=== PATIENT | female | born 1990 | race Caucasian/White ===

== ENCOUNTER 2024-12-22 08:02 | Emergency (ER) | payer BC, SELFPAY ==
--- NOTE | ~2024-12-22 | CT_ITS ---
CT abdomen pelvis w con Ordering provider: Garth Jay MD History: 34 years Female with . Right abdominal pain . Comparison: None. Technique: CT abdomen and pelvis with IV and without oral contrast. Automated exposure control and it erative reconstruction technique were employed. The dose-length product was 219.82 mGy-cm. 100 mL Omn ipaque 350 was given IV. Findings: VISUALIZED LOWER CHEST: Normal. UPPER ABDOMINAL ORGANS: Liver: Normal. Gallbladder: Normal. Spleen: Normal. Stomach/duodenum: Normal. Pancreas: Normal. Adrenals: Normal. Kidneys: Normal. PELVIC ORGANS: The bladder is underfilled. Uterus: Enlarged with mixed density area in the endometrium which may be fibroids or produc ts. Further evaluation advised. Right ovarian cyst is seen measuring 2.4 cm. BOWEL AND MESENTERY: Colon: No evidence of diverticulitis.. No evidence of appendicitis. Small Bowel: Normal. No obstruction. Peritoneum/mesentery: No free air. Minimal free fluid is seen in the pelvis posteriorly. No mesenteri c lymphadenopathy. RETROPERITONEUM: Normal aorta. No No retroperitoneal lymphadenopathy. MUSCULOSKELETAL: Superficial soft tissues: The superficial soft tissues are normal. Bones: Normal spine. IMPRESSION: 1. No evidence of appendicitis, diverticulitis or intestinal obstruction. 2. Dense areas seen in the endometrial cavity which may be fibroids or masses. products ca nnot be excluded. Clinical correlation and further evaluation advised. 3. Small right ovarian cyst. 4. Minimal free fluid in the pelvis. Reviewed, dictated and finalized at location A. IMPRESSION: 1. No evidence of appendicitis, diverticulitis or intestinal obstruction. 2. Dense areas seen in the endometrial cavity which may be fibroids or masses. products cannot be excluded. Clinical correlation and further evalua tion advised. 3. Small right ovarian cyst. 4. Minimal free fluid in the pelvis.
--- OUTSIDE RECORDS SUMMARY | 2024-12-22 08:09 | XMS_ITS | Referral Summary ---
Author Organization [facility] Address [address] [place] [address] Care Team Providers Care Sand Car Worker Name Role Phone Jennifer Mcconnell CAR TESTER Primary Care Provider + Allergies Active Allergy Reactions Criticality Noted Date Comments Azithromycin Nausea And Vomiting,Other (See comments) Low 02/06/2010 Dexamethasone Other (See comments) Low 06/24/2023 Cause extreme dehydration Medications albuterol HFA (PROVENTIL HFA,VENTOLIN HFA,PROAIR HFA) 90 mcg/actuation inhaler 05/19/2023 Active Symbicort 160-4.5 mcg/actuation inhaler 05/19/2023 Active montelukast (SINGULAIR) 10 mg tablet 05/19/2023 Active sertraline (ZOLOFT) 50 mg tablet Take 1 tablet (50 mg total) by mouth daily 10/09/2023 Active Active Problems Problem Noted Date Diagnosed Date Palpitations 07/29/2023 Asthmatic bronchitis without complication 2022 Seasonal allergic rhinitis 06/28/2023 Vocal cord dysfunction 06/28/2023 Social History Tobacco Use Types Packs/Day Years Used Date Smoking Tobacco: Never Passive Smoke Exposure: Never Smokeless Tobacco: Never Tobacco Cessation:Counseling Given: Not Answered AUDIT-C Answer Date Recorded Q1: How often do you have a drink containing alc ohol? 2-4 times a month 06/24/2023 Q2: How many drinks containi ng alcohol do you have on a typical day when you are drinking? 3 or 4 06/24/2023 Q3: How often do you have si x or more drinks on one occasion? Never 06/24/2023 Personal Safety Answer Date Recorded Getting School Help Needed Not on file 10/20 Comments Unknown Sex and Gender Information Value Date Recorded Sex Assigned at Not on file Legal Sex Female 10:02 AM CDT Gender Identity Not on file Sexual Orientation Not on file Last Filed Vital Signs Vital Sign Reading Time Taken Comments Blood Pressure 110/68 04/27/2024 3:22 PM CDT Pulse 84 04/27/2024 3:22 PM CDT Temperature 36.6 C (97.9 F) 04/27/2024 3:22 PM CDT Respiratory Rate 18 04/27/2024 3:22 PM CDT Oxygen Saturation 98% 04/27/2024 3:22 PM CDT Inhaled Oxygen Concentration - - Weight 54.4 kg (120 lb) 04/27/2024 3:22 PM CDT Height 165.1 cm (5' 5 ) 04/27/2024 3:22 PM CDT Body Mass Index 19.97 04/27/2024 3:22 PM CDT Plan of Treatment Not on file Insurance [employer] ACCESS CHOICE [employer] ACC[employer] CHO[employer] Care Teams Sand Car Worker Relationship Specialty Start Date End Date Jennifer Mcconnell NP PCP - General Nurse Practitioner 05/22/23
--- OUTSIDE RECORDS SUMMARY | 2024-12-22 08:09 | XMS_ITS | Clinical Summary ---
Author Organization [facility] Address [address] [place] [address] Care Team Providers Care Supervisor Personnel Clerks Name Role Phone Jennifer Mcconnell INSTALLATION AND REPAIR TECHNICIAN Primary Care Provider + Allergies Active Allergy [...] allergic rhinitis 06/28/2023 Vocal cord dysfunction 06/28/2023 Family History Medical History Relation Name Comments Cancer Father Heart disease Mother Relation Name Status Comments Father Mother Social History Tobacco Use Types Packs/Day Years [...] on file Sexual Orientation Not on file Obstetrics History Last Filed Vital Signs Vital Sign Reading [...] 04/27/2024 3:22 PM CDT Plan of Treatment Health Maintenance Due Date Last Done Comments Cervical Cancer Screening 1992 Depression Screening 1992 Hepatitis C Screening 1992 Varicella Vaccines (1 of 2 - 13+ 2-dose series) 2005 Hepatitis B Screening 2010 Regular Well Visit/Exam 18-64 2010 Pneumococcal vaccine <65 (1 of 2 - PCV) 12/01/2011 Covid-19 Vaccine ( - season) 2024 01/31/2021, 01/03/2021 DTaP/Tdap/Td Vaccine (2 - Td or Tdap) 02/05/2025 02/05/2015 Influenza Vaccine (Season Ended) 2025 05/20/2023, 07/16/2021, 05/30/2020, Additional history exists HPV Vaccines Aged Out No longer eligi ble based on patient's age to complete this topic Insurance [employer] ACCESS CHOICE [employer] ACCESS CHOICE Care Teams Supervisor Personnel Clerks Relationship Specialty Start Date End Date Jennifer Mcconnell NP PCP - General Nurse Practitioner 05/22/23
--- OUTSIDE RECORDS SUMMARY | 2024-12-22 08:10 | XMS_ITS | Clinical Summary ---
Author Organization [facility] Address [address] [place] [id number] Care Team Providers Care Forklift Driver Name Role Phone Unavailable Primary Care Provider Unavailabl e Social History Tobacco Use Types Packs/Day Years Used Date Smoking Tobacco: Never Assessed Comments Unknown Sex and Gender Information Value Date Recorded Sex Assigned at Not on file Legal Sex Female 7:24 PM CDT Gender Identity Not on file Sexual Orientation Not on file Plan of Treatment Health Maintenance Due Date Last Done Comments Cervical Cancer Screening Pa p Smear (Age 30 to 64) Every 3 Years 1992 Annual Physical 12/01/1995 Hepatitis C 2010 DTaP, Tdap and Td Vaccines ( 1 - Tdap) 12/01/2011 Hepatitis B Vaccines (1 of 3 - 19+ 3-dose series) 12/01/2011 Cervical Cancer Screening Pa p with HPV Testing (Age 30 to 64) Every 5 Years 2022 Cervical Cancer Screening with HPV 2022 COVID-19 Vaccine (2023-2 5 season) 2024 HPV Vaccines Aged Out No longer eligi ble based on patient's age to complete this topic Meningococcal B Vaccine Aged Out No l onger eligible based on patient's age to complete this topic Meningococcal Vaccine Aged Out No jorge a diane eligible based on patient's age to complete this topic Pneumococcal Vaccine: Pediat rics (0 to 5 Years) and At-Risk Patients (6 to 49 Years) Aged Out No longer eligible b ased on patient's age to complete this topic RSV Immunizations Under 20 Months Aged Out No longer eligible based on patient's age to complete this topic
--- OUTSIDE RECORDS SUMMARY | 2024-12-22 08:10 | XMS_ITS | Data Portability ---
Author Organization [place] - [facility] [employer], Main Office Address [address] [place] [address] Care Team Providers Care Car Designer Name Role Phone ATIYA CHAVEZ Advisory Application Developer Assessment Encounter Date Assessment Date Assessment LastModified by Organization Details LastModified Time 12/01/2023 12/01/2023 Flu Shot: 05/2023 COVID vaccines: 12/2020, 12/2020, 01/2021 Tdap: 01/2015 WWE: 2021, recommended in 2024 Vision exams: recommended Dental screenings: due, recommended [email or web address] Not available 12/01/2023 09:40:41 Plan of Treatment Reminders Order Date Submit Date Provider Last Modified By Organization Details Last Modified Time Details Appointments None recorded. Lab lipid panel, serum [address] - Outpatient Lab, [address] [place], [address], 3 08:52:35 TSH, serum, reflex free T4 [address] Outpatient Lab, [address] [place], [address], 3 08:52:35 CMP, serum or plasma [address] Outpatient Lab, [address] [place], [address], 3 08:52:35 HbA1c (hemoglobin A1c), blood [address] Outpatient Lab, [address] [place], [address], 3 08:52:35 CBC w/ auto diff [address] - Outpatient Lab, [address] [place], [address], 3 08:52:35 Referral clinical therapist referral - Please call patient to schedule appointment . 2023 024 [email or web address] Mary Kay RossSlade [facility], [address], [place], [address], 4 12:55:[address] referral - Asthma and allergies. 2022 023 [email or web address] 3 Kilpatrick F Santiago, [address] [facility], [facility] [address], [place], [address], 3 07:39:30 Procedures None recorded. Surgeries None recorded. Imaging None recorded. Medication Orders montelukast 10 mg tablet 2023 024 [facility], [address] [place], [address], 4 16:36:42 albuterol sulfate HFA 90 mcg/actuati on aerosol inhaler 2023 024 [facility], [address] [place], [address], 4 09:43:11 sertraline 50 mg tablet [address] [facility] [address], [address] [place] [address], [address], 4 16:12:06 sertraline 50 mg tablet [address] [facility] [address], [address], [address], 4 16:11:41 Symbicort 160 mcg-4.5 mcg/actuati on HFA aerosol inhaler [email or web address] [facility] [address], [address], [address], 4 09:03:14 montelukast 10 mg tablet [address] [facility] [address], [address], [address], 3 10:42:05 albuterol sulfate HFA 90 mcg/actuati on aerosol inhaler 2022 023 [facility], [address], [address], 3 10:42:05 Patient TargetsNo targets recorded. Patient Instructions Encounter Date Encounter Id Patient Instructions Last Modified By Organization Details Last Modified Time 01/07/2023 [id number] FU in 1 year for wellness. 6 mo fu asthma, allergies. Not available 01/07/2023 16:51:18 05/20/2023 [id number] Fu in 6 mo, sooner as needed. Asthma, allergies, etc. Not available 05/20/2023 08:26:50 09/03/2023 [id number] FU with new provider in 6 weeks for check up. 09/03/23 pt aware of sam departure. wellness after 01/09/24 Not available 09/03/2023 09:29:19 Reason for Referral Geotechnical Engineer Referral for A sta Asthma and allergies. Referring Physician: [facility], Encounter Date: 05/20/2023 Clinical Therapist Referral for Anxiety Please call patient to schedule appointment. Referring Physician: [facility], Encounter Date: 09/03/2023 Results Created Date Observation Date Name Description Value Unit Range Abnormal Flag Note LastModifiedBy Organization Detail LastModifiedTime 05/20/20 23 05/20/2023 CBC/C OMPLE TE BLD COUNT W/DIF F white blood cells 6.1 x10'3 /uL 4.2-10 .8 Not Available [facility] (Lab) [address] [place], [address], 05/20/2023 13:00:07 05/20/20 23 05/20/2023 CBC/C OMPLE TE BLD COUNT W/DIF F red blood cells 4.11 x10'6 /uL 3.80-5 .20 Not Available [facility] (Lab) [address] [place], [address], 05/20/2023 13:00:07 05/20/20 23 05/20/2023 CBC/C OMPLE TE BLD COUNT W/DIF F hemoglobin 13.3 g/dL 12.0-1 5.6 Not Available [facility] (Lab) [address] [place], [address], 05/20/2023 13:00:07 05/20/20 23 05/20/2023 CBC/C OMPLE TE BLD COUNT W/DIF F hematocrit 39.7 % 35.7-4 5.7 Not Available [facility] (Lab) [address] [place], [address], 05/20/2023 13:00:07 05/20/20 23 05/20/2023 CBC/C OMPLE TE BLD COUNT W/DIF F mean red cell volume 96.6 fL 82.0-9 9.0 Not Available [facility] (Lab) [address] [place], [address], 05/20/2023 13:00:07 05/20/20 23 05/20/2023 CBC/C OMPLE TE BLD COUNT W/DIF F mean red cell hemoglobin 32.4 pg 27.0-3 3.0 Not Available [facility] (Lab) [address] [place], [address], 05/20/2023 13:00:07 05/20/20 23 05/20/2023 CBC/C OMPLE TE BLD COUNT W/DIF F mean RBC HGB concentratio n 33.5 g/dL 31.0-3 6.0 Not Available [facility] (Lab) [address] [place], [address], 05/20/2023 13:00:07 05/20/20 23 05/20/2023 CBC/C OMPLE TE BLD COUNT W/DIF F red cell distribution width 12.3 % 11.8-1 5.5 Not Available [facility] (Lab) [address] [facility] [place], [address], 05/20/2023 13:00:07 05/20/20 23 05/20/2023 CBC/C OMPLE TE BLD COUNT W/DIF F platelets 326 x10'3 /uL 150-40 0 Not Available [facility] (Lab) [address] [place], [address], 05/20/2023 13:00:07 05/20/20 23 05/20/2023 CBC/C OMPLE TE BLD COUNT W/DIF F mean platelet volume 9.8 fL 9.0-12 .4 Not Available [facility] (Lab) [address] [place], [address], 05/20/2023 13:00:07 05/20/20 23 05/20/2023 CBC/C OMPLE TE BLD COUNT W/DIF F neutrophils 66.2 % 39.0-7 2.0 Not Available [facility] (Lab) [address] [place], [address], 05/20/2023 13:00:07 05/20/20 23 05/20/2023 CBC/C OMPLE TE BLD COUNT W/DIF F lymphocytes 25.3 % 16.0-4 7.0 Not Available [facility] (Lab) [address] [facility] [place], [address], 05/20/2023 13:00:07 05/20/20 23 05/20/2023 CBC/C OMPLE TE BLD COUNT W/DIF F monocytes 7.2 % 5.0-12 .0 Not Available [facility] (Lab) [address] [place], [address], 05/20/2023 13:00:07 05/20/20 23 05/20/2023 CBC/C OMPLE TE BLD COUNT W/DIF F eosinophils 0.8 % 1.0-7. 0 low Not Available [facility] (Lab) [address] [place], [address], 05/20/2023 13:00:07 05/20/20 23 05/20/2023 CBC/C OMPLE TE BLD COUNT W/DIF F basophils 0.3 % 0.0-2. 0 Not Available [facility] (Lab) [address] [place], [address], 05/20/2023 13:00:07 05/20/20 23 05/20/2023 CBC/C OMPLE TE BLD COUNT W/DIF F immature granulocytes 0.2 % 0.00-0 .50 Not Available [facility] (Lab) [address] [place], [address], 05/20/2023 13:00:07 05/20/20 23 05/20/2023 CBC/C OMPLE TE BLD COUNT W/DIF F neutrophils, absolute count 4.05 x10'3 /uL 1.5-8. 0 Not Available [facility] (Lab) [address] [place], [address], 05/20/2023 13:00:07 05/20/20 23 05/20/2023 CBC/C OMPLE TE BLD COUNT W/DIF F lymphocytes, absolute count 1.55 x10'3 /uL 1.07-3 .43 Not Available [facility] (Lab) [address] [place], [address], 05/20/2023 13:00:07 05/20/20 23 05/20/2023 CBC/C OMPLE TE BLD COUNT W/DIF F monocytes, absolute count 0.44 x10'3 /uL 0.29-0 .99 Not Available [facility] (Lab) [address] [place], [address], 05/20/2023 13:00:07 05/20/20 23 05/20/2023 CBC/C OMPLE TE BLD COUNT W/DIF F eosinophils, absolute count 0.05 x10'3 /uL 0.02-0 .53 Not Available [facility] (Lab) [address] [place], [address], 05/20/2023 13:00:07 05/20/20 23 05/20/2023 CBC/C OMPLE TE BLD COUNT W/DIF F basophils, absolute count 0.02 x10'3 /uL 0.01-0 .08 Not Available [facility] (Lab) [address] [place], [address], 05/20/2023 13:00:07 05/20/20 23 05/20/2023 CBC/C OMPLE TE BLD COUNT W/DIF F immature granulocytes ,absolute 0.01 x10'3 /uL 0.00-0 .05 Not Available [facility] (Lab) [address] [place], [address], 05/20/2023 13:00:07 05/20/20 23 05/20/2023 CBC/C OMPLE TE BLD COUNT W/DIF F nucleated red blood cells 0.0 % -0 Not Available [facility] (Lab) [address] [place], [address], 05/20/2023 13:00:07 0905/20/2023 CBC/C OMPLE TE BLD COUNT W/DIF F NRBC# 0.00 x10'3 /uL Not Available [facility] (Lab) [address] [place], [address], 05/20/2023 13:00:07 05/20/20 23 05/20/2023 COMPR EHENS JULIET METAB OLIC PANEL sodium 136 mmol/ L 137-14 5 low Not Available [facility] (Lab) [address] [place], [address], 05/20/2023 13:20:04 05/20/20 23 05/20/2023 COMPR EHENS JULIET METAB OLIC PANEL potassium 4.5 mmol/ L 3.5-5. 1 Not Available [facility] (Lab) [address] [place], [address], 05/20/2023 13:20:04 05/20/20 23 05/20/2023 COMPR EHENS JULIET METAB OLIC PANEL chloride 103 mmol/ L 98-107 Not Available [facility] (Lab) [address] [place], [address], 05/20/2023 13:20:04 05/20/20 23 05/20/2023 COMPR EHENS JULIET METAB OLIC PANEL carbon dioxide 27 mmol/ L 22-30 Not Available [facility] (Lab) [address] [place], [address], 05/20/2023 13:20:04 05/20/20 23 05/20/2023 COMPR EHENS JULIET METAB OLIC PANEL anion gap 10.5 mmol/ L 14-22 low Not Available [facility] (Lab) [address] [place], [address], 05/20/2023 13:20:04 05/20/20 23 05/20/2023 COMPR EHENS JULIET METAB OLIC PANEL glucose 95 mg/dL 70-99 Not Available [facility] (Lab) [address] [place], [address], 05/20/2023 13:20:04 05/20/20 23 05/20/2023 COMPR EHENS JULIET METAB OLIC PANEL BUN 11 mg/dL 8-19 Not Available [facility] (Lab) [address] [place], [address], 05/20/2023 13:20:04 05/20/20 23 05/20/2023 COMPR EHENS JULIET METAB OLIC PANEL creatinine 0.58 mg/dL 0.66-1 .25 low Not Available [facility] (Lab) [address] [facility] [place], [address], 05/20/2023 13:20:04 05/20/20 23 05/20/2023 COMPR EHENS JULIET METAB OLIC PANEL GFR >60 Refer ence Range : Hayti ge GFR Healt hy Adult : >60 mL/mi n/1.7 3 m2 Chron ic Kidne y Disea se: 15-60 mL/mi n/1.7 3 m2 Kidne y Failu re: <15/m L/min /1.73 m2 www.n iddk. nih.g ov The MDRD study equat ion has not been valid ated in child norman <18 years of age; pregn ant women ; the elder ly >85 years of age; or in some racia l or ethni c subgr oups, such as [facility] nics. Outsi de the valid ated whit eters , estim ated GFR is less accur ate, requi ring clini nikita judgm ent on a case- by-ca se basis . Clini nikita inter preta tion for other races and ages must be made by the clini finn. The MDRD study equat ion has not been valid ated for the evalu ation of serum creat inine relat ed to nutri antwon l statu s or medic ation usage . For perso ns <18 years of age, a pedia tric GFR calcu lator is avail able on the NKF websi te: https ://marnie avery.laly bravo.o rg/pr ofess ional s/kdo qi/gf r_cal culat or Not Available [facility] (Lab) [address] [place], [address], 05/20/2023 13:20:04 05/20/20 23 05/20/2023 COMPR EHENS JULIET METAB OLIC PANEL alkaline phosphatase 34 U/L 38-126 low Not Available [facility] (Lab) [address] [place], [address], 05/20/2023 13:20:04 05/20/20 23 05/20/2023 COMPR EHENS JULIET METAB OLIC PANEL alanine aminotransfe rase 12 U/L 0-35 Not Available [facility] (Lab) [address] [place], [address], 05/20/2023 13:20:04 05/20/20 23 05/20/2023 COMPR EHENS JULIET METAB OLIC PANEL aspartate aminotransfe rase 15 U/L 15-37 Not Available [facility] (Lab) [address] [place], [address], 05/20/2023 13:20:04 05/20/20 23 05/20/2023 COMPR EHENS JULEIT METAB OLIC PANEL bilirubin, total 0.40 mg/dL 0.20-1 .30 Not Available [facility] (Lab) [address] [place], [address], 05/20/2023 13:20:04 05/20/20 23 05/20/2023 COMPR EHENS JULIET METAB OLIC PANEL calcium 9.3 mg/dL 8.4-10 .2 Not Available [facility] (Lab) [address] [place], [address], 05/20/2023 13:20:04 05/20/20 23 05/20/2023 COMPR EHENS JULIET METAB OLIC PANEL total protein 7.2 g/dL 6.3-8. 2 Not Available [facility] (Lab) [address] [place], [address], 05/20/2023 13:20:04 05/20/20 23 05/20/2023 COMPR EHENS JULIET METAB OLIC PANEL albumin 4.4 g/dL 3.4-5. 0 Not Available [facility] (Lab) [address] [place], [address], 05/20/2023 13:20:04 05/20/20 23 05/20/2023 COMPR EHENS JULIET METAB OLIC PANEL globulin 2.8 g/dL 2.6-4. 2 Not Available [facility] (Lab) [address] [place], [address], 05/20/2023 13:20:04 05/20/20 23 05/20/2023 COMPR EHENS JULIET METAB OLIC PANEL A/G ratio 1.6 ratio 1.0-2. 0 Not Available [facility] (Lab) [address] [place], [address], 05/20/2023 13:20:04 05/20/20 23 05/20/2023 LIPID PANEL cholesterol 155 mg/dL 140-19 9 NIH ODALYS NSUS RECOM MENDA TION FOR ALONSO STERO L: ADULT CHILD LOW RISK: <200 <170 BORDE RLINE : <200- 239 ----- HIGH RISK: >240 >200 Not Available [facility] (Lab) [address] [place], [address], 05/20/2023 13:20:07 05/20/20 23 05/20/2023 LIPID PANEL triglyceride s 69 mg/dL 0-150 NIH ODALYS NSUS REPOR T RECOM MENDA TION FOR TRIGL YCERI DOMINIC: ADULT CHILD LOW RISK: <150 ----- BODER LINE: 150-1 99 ----- HIGH RISK: >200 ----- Not Available [facility] (Lab) [address] [place], [address], 05/20/2023 13:20:07 05/20/20 23 05/20/2023 LIPID PANEL HDL cholesterol 60 mg/dL 40- Not Available [facility] (Lab) [address] [place], [address], 05/20/2023 13:20:07 05/20/20 23 05/20/2023 LIPID PANEL LDL cholesterol, calculated 81 mg/dL 0-130 NIH ODALYS NSUS REPOR T RECOM MENDA TIONS FOR LDL: ADULT CHILD LOW RISK <130 <110 (OPTI MAL LDL) <100 ----- BORDE RLINE : 130-1 59 ----- HIGH RISK: >160 >130 A TRIGL YCERI DE RESUL T >400 INVAL IDATE S THE CALCU LATIO N FOR LDL FRACT IONAT ION - THE LDL RESUL T WILL NOT BE REPOR MALCOLM. Not Available [facility] (Lab) [address] [place], [address], 05/20/2023 13:20:07 05/20/20 23 05/20/2023 TSH W/REF CYNDI FT4 TSH with reflex free T4 1.070 uIU/m L 0.465- 4.680 Not Available [facility] (Lab) [address] [place], [address], 05/20/2023 13:48:22 05/20/20 23 05/20/2023 HEMOG LOBIN A1C HA1C 5.4 % 4.0-6. 0 Diabe elmo Scree massiel Crite gracia: <5.7% Consi stent with absen ce of diabe elmo 5.7-6 .4% Consi stent with incre ased risk for diabe elmo (pred iabet es) >OR=6 .5% Consi stent with diabe elmo REFER ENCE: Diabe elmo Care 2016, 39(Tejeda ppl.1 ):s13 -s22 Not Available [facility] (Lab) [address] [place], [address], 05/20/2023 14:20:18 Result Notes None recorded. Problems Name Problem SNOMED Code Status Onset Date Resolution Date Notes Provider Name and Address Organization Details Recorded Time Asthma 755151401 Active Not Available [facility] 3 08:09:17 Headache 89286361 Active Not Available [facility] 3 08:09:17 Seasonal allergic rhinitis 285677814 Active 2019 Not Available [facility] 3 08:09:17 Allergic reaction to food 197869867 Active Not Available [facility] 3 08:09:17 Upper respiratory infection 70024907 Active 2017 Not Available [facility] 3 08:09:17 Anxiety 19789369 Active 2023 Jennifer Mcconnell NP [address] [facility], [address], [place], [address] , [employer] 4 09:15:04 Allergic rhinitis 22581713 Active 2023 Jennifer Mcconnell NP [address] [facility], [facility] [address], [place], [address] , [employer] 4 09:23:40 Acute otitis externa 94279775 Active 2023 NANCY Bolanos [address] [facility], [place], [address] , [employer] [facility] [employer] 4 16:36:06 Problem Notes None recorded. Medical Equipment None Reported. Allergies Allergen ID Allergen Name Allergen Category Reaction Reaction Severity Criticality Documentation Date Start Date Code Code System Note Provider Name and Address Organization Details Recorded Time 41666 azithromy guille medicatio n respirato ry distress Not available Not available 10/29/2022 78311 RxNorm Not Available [facility] 3 08:12:15 Medications Name Sig Start Date Stop Date Status Note LastModified by Organization Details LastModified Time amoxicillin 500 mg capsule Take 1 capsule every 8 hours by oral route for 7 days. 07/30 completed Not Available Not Available Not Available cetirizine 10 mg tablet 1 tab po daily 05/20 completed Not Available Not Available Not Available benzonatate 200 mg capsule Take 1 capsule 3 times a day by oral route for 10 days. active Not Available Not Available No t Available amoxicillin 500 mg tablet Take 1 tablet every 8 hours by oral route as directed for 7 days. 07/30 completed Not Available Not Available Not Available montelukast 10 mg tablet TAKE 1 TABLET BY MOUTH ONCE DAILY DIRECTED active Not Available Not Available No t Available methylpredn isolone 4 mg tablets in a dose pack take po as directed on label 07/30 completed Not Available Not Available Not Available albuterol sulfate HFA 90 mcg/actuati on aerosol inhaler INHALE 2 PUFFS BY MOUTH EVERY 4 HOURS NEEDED FOR WHEEZING active Not Available Not Available No t Available sertraline 50 mg tablet TAKE 1 TABLET BY MOUTH ONCE DAILY DIRECTED 2024 active Not Available Not Available Not Avai lable Asmanex Twisthaler 220 mcg/actuati on(30 doses) breath activated inhalr INHALE 1 PUFF BY MOUTH AT BEDTIME DISCARD 45 DAYS AFTER OPENING 05/30 completed Not Available Not Available Not Available Symbicort 160 mcg-4.5 mcg/actuati on HFA aerosol inhaler INHALE 2 PUFFS BY MOUTH TWICE DAILY 09/03 completed Not Available Not Available Not Available Afluria 2064-1952(P F) 45 mcg (15 mcg x 3)/0.5 mL intramuscul ar syringe active Not Available Not Available N ot Available Flonase Allergy Relief 50 mcg/actuati on nasal spray,suspe nsion [place] 1 spray every day by intranasa l route. active Not Available Not Available No t Available Vitals Date Recorded Body weight Body mass index (BMI) Body height Body temperature Heart rate Respiratory rate Oxygen saturation Oxygen saturation in Arterial blood by Pulse oximetry Pain severity - 0-10 verbal numeric rating [Score] - Reported Systolic blood pressure Diastolic blood pressure Provider Name and Address Organization Details Last Updated DateTime 3 40790.1 1 g 19.3 kg/m2 165.1 cm 98 [degF] 103 /min 16 /min 98 % 98 % 0 118 mm[Hg] 60 mm[Hg] Jennifer Lynne RN [place] [facility] 3 16:30:32 Date Recorded Body height Body mass index (BMI) Body weight Heart rate Respiratory rate Oxygen saturation Oxygen saturation in Arterial blood by Pulse oximetry Pain severity - 0-10 verbal numeric rating [Score] - Reported Body temperature Systolic blood pressure Diastolic blood pressure Provider Name and Address Organization Details Last Updated DateTime 3 165.1 cm 19.1 kg/m2 38028.1 2 g 83 /min 16 /min 99 % 99 % 0 97.8 [degF] 110 mm[Hg] 64 mm[Hg] Jennifer Lynne RN [facility] 3 08:08:41 Date Recorded Body height Body mass index (BMI) Body weight Body temperature Heart rate Oxygen saturation Oxygen saturation in Arterial blood by Pulse oximetry Systolic blood pressure Diastolic blood pressure Provider Name and Address Organization Details Last Updated DateTime 4 165.1 cm 19 kg/m2 73133.5 3 g 97.2 [degF] 101 /min 99 % 99 % 110 mm[Hg] 62 mm[Hg] Cecily guajardo CMA [facility] 4 09:03:03 Date Recorded Body height Body mass index (BMI) Body weight Body temperature Heart rate Respiratory rate Oxygen saturation Oxygen saturation in Arterial blood by Pulse oximetry Systolic blood pressure Diastolic blood pressure Provider Name and Address Organization Details Last Updated DateTime 4 165.1 cm 19.7 kg/m2 59822.0 5 g 97.2 [degF] 84 /min 20 /min 99 % 99 % 122 mm[Hg] 88 mm[Hg] Jennifer Lynne RN [facility] 4 09:32:19 Date Recorded Body height Body mass index (BMI) Body weight Body temperature Heart rate Respiratory rate Oxygen saturation Oxygen saturation in Arterial blood by Pulse oximetry Pain severity - 0-10 verbal numeric rating [Score] - Reported Systolic blood pressure Diastolic blood pressure Provider Name and Address Organization Details Last Updated DateTime 4 165.1 cm 19.3 kg/m2 95793.1 1 g 96.5 [degF] 104 /min 20 /min 98 % 98 % 0 102 mm[Hg] 62 mm[Hg] Jennifer Lynne RN [facility] 4 16:15:36 Social History Question Answer Notes LastModified by Organizat ion Details LastModified Time Tobacco Smoking Status Never Smoker Not Available [facility] 10/29/2022 08:06:12 Do You Have An Advance Directive? No Information not available 01/07/2023 What Is Your Level Of Alcohol Consumption? Occasional [id number] Information not available 10/29/2022 Do You Wear A Helmet When Biking? Yes [id number].[id number] Information not available 10/29/2022 Is Blood Transfusion Acceptable In An Emergency? Yes Information not available 01/07/2023 What Is Your Level Of Caffeine Consumption? Moderate [id number].27950 [id number] Information not available 10/29/2022 What Is Your Code Status? Full Code Information not available 01/07/2023 In The 14 Days Before Symptom Onset, Have You Had Close Contact With A Laboratory-confir med COVID-19 While That Case Was Ill? No Information not available 01/07/2023 In The 14 Days Before Symptom Onset, Have You Had Close Contact With A Person Who Is Under Investigation For COVID-19 While That Person Was Ill? No Information not available 01/07/2023 What Type Of Diet Are You Following? REGULAR MIGRATION.25437 [id number] Information not available 10/29/2022 What Is The Highest Grade Or Level Of School You Have Completed Or The Highest Degree You Have Received? 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 3 Information not available 01/07/2023 On Those Days That You Engage In Moderate To Strenuous Exercise, How Many Minutes, On Average, Do You Exercise? 30 Information not available 01/07/2023 Have There Been Any Changes To Your Family Or Social Situation? No MIGRATION.75080 47179 Information not available 10/29/2022 What Is The Fluoride Status Of Your Home? Unknown MIGRATION.81384 07397 Information not available 10/29/2022 Do You Use Insect Repellent Routinely? No MIGRATION.08201 02114 Information not available 10/29/2022 Where Do You Live? [place]House MIGRATION.71009 15640 Information not available 10/29/2022 Are You Following A Low Salt Diet? No MIGRATION.91969 83567 Information not available 10/29/2022 Do You Have A Medical Power Of Toll Relief Operator? No Information not available 01/07/2023 How Many Children Do You Have? 0 Information not available 05/20/2023 Do You Have Any Pets? Yes MIGRATION.15793 59149 Information not available 10/29/2022 What Is Your Relationship Status? Single MIGRATION.74613 94022 Information not available 10/29/2022 Do You Use Your Seat Belt Or Car Seat Routinely? Yes MIGRATION.30354 40458 Information not available 10/29/2022 Do You Have Smoke And Carbon Monoxide Detectors In Your Home? Yes MIGRATION.08594 22601 Information not available 10/29/2022 Are You Passively Exposed To Smoke? No MIGRATION.53167 40513 Information not available 10/29/2022 Are There Any Smokers In Your House? No MIGRATION.42061 50132 Information not available 10/29/2022 Do You Participate In Social Media? Yes MIGRATION.49106 07649 Information not available 10/29/2022 Do You Feel Stressed (tense, Restless, Nervous, Or Anxious, Or Unable To Sleep At Night)? CD2656-8 Information not available 01/07/2023 Do You Use Sunscreen Routinely? No MIGRATION.97834 96468 Information not available 10/29/2022 Have You Recently Traveled Abroad? No Information not available 01/07/2023 Are You Currently In School? No MIGRATION.18130 95807 Information not available 10/29/2022 Do You Have Any Dietary Restrictions? Yes MIGRATION.21230 52651 Information not available 10/29/2022 Sex: Unknown Functional Status Question Answer Note LastModified by Organizat ion Details LastModified Time What is your exercise level? Moderate [id number] Information not available 10/29/2022 Mental Status None recorded. Family History Relationship Description Onset Age of this Age Resolved Age Notes LastModified by Organization Details LastModified Time Paternal Aunt Aneurysm [id number] Not available 10/29/2022 08:06:36 Paternal Aunt Malignant tumor of breast [id number] Not available 10/29/2022 08:06:36 Unspecified Relation Heart disease moms side [id number] Not available 10/29/2022 08:06:36 Notes:heart disease on mothe r's side Medical History Condition Response BLINDNESS N RHEUMATIC FEVER N KIDNEY STONES N BLADDER PROBLEMS N MRSA N OTHER # 1 N POLIO N LUNG DISEASE/DISORDER N HISTORY OF DRUG ABUSE N COPD N RADIATION / CHEMOTHERAPY N Other # 2 N BLOOD DISEASES N SURGERY N EAR OR HEARING PROBLEMS N MUMPS N SHINGLES N BOWEL PROBLEMS N FEMALE PROBLEMS / INFECTIONS N DEPRESSION (INCLUDING POST ) N FAILED BACK SYNDROME N STROKE/TIA N THYROID DISEASE N ULCERS N BENIGN PROSTATIC HYPERPLASIA N MEASLES N CERVICALGIA N TB SKIN TEST N HYPOTENSION N MYOCARDIAL INFARCTION N OBESITY N PARAPELGIA N GERD/NAUSEA N ANEURYSM N URINARY/BLADDER/KIDNEY PROBLEMS N CORONARY ARTERY DISEASE (CAD) N Do you have Advance directive? N MENIERE'S DISEASE N ADDICTION CONCERNS N ENDOMETRIOSIS N USE OF BLOOD THINNERS N SKIN PROBLEMS N EMPHYSEMA N GASTROINTESTINAL DISORDER N PERIPHERAL ARTERY DISEASE N MUSCLE,JOINT OR BONE PROBLEMS N GASTROINTESTINAL BLEEDING N BLOOD CLOTS N ASTHMA N Abdominal Pain N CATARACTS N ARTERIAL INSUFFICIENCY N ERECTILE DYSFUNCTION N GI PROBLEMS N CHF N Low Testosterone N NEUROPATHY N INFERTILITY N AIDS/HIV N FRACTURES N CHEMOTHERAPY / RADIATION N VISION/EYE PROBLEMS N LIVER DISEASE N HYPERTENSION N TOURETTE'S N ANXIETY DISORDER N BLOOD TRANSFUSION N ANEMIA/BLOOD DISORDER N CHRONIC EAR INFECTIONS N BRONCHITIS N TUBERCULOSIS N GLAUCOMA N FOOT PROBLEM N DIVERTICULITIS N CHICKENPOX N SLEEP APNEA N BACK INJECTIONS N ALLERGIES/HAYFEVER N INFECTIOUS DISEASE N HEART ARRHYTHMIA N PROSTATE N ESRD N INSOMNIA N HIGH CHOLESTEROL / HYPERLIPIDEMIA N HYPERTHYROIDISM N EYE PROBLEMS N PVD N EATING DISORDER N EDEMA N CHRONIC PAIN SYNDROME N CAROTID BLOCKAGE N CONSTIPATION N BACK / NECK PROBLEMS N HAVE YOU BEEN HOSPITALIZED OR SEEN IN [facility] IN THE PAST YEAR ? N ATHEROSCLEROSIS N BREAST PROBLEMS N DIALYSIS N POLYCYSTIC OVARIES N ECZEMA N FIBROMYALGIA N OSTEOPOROSIS N ARTHRITIS N NO SIGNIFICANT PAST MEDICAL HISTORY N APPENDICITIS N DIABETES, TYPE N BAD TEETH N VON WILLIBRAND'S DISEASE N HEARTBURN / REFLUX N ADD/ADHD N AUTISM SPECTRUM DISORDER (ASD) N POST LAMINECTOMY SYNDROME N HEPATITIS / LIVER DISEASE N PULMONARY DISEASE N GOUT N SLEEP DISORDER N ALZHEIMER'S DISEASE N PAIN N HERPES N DEMENTIA N HEADACHES/MIGRAINES N SEIZURES/EPILEPSY N VASCULAR DISEASE N PACEMAKER N DIZZINESS N HEART DISEASE/HEART PROBLEMS N KIDNEY DISEASE N DEVELOPMENTAL OR BEHAVIORAL DISORDERS N MULTIPLE SCLEROSIS N SCARLET FEVER N MENTAL DISORDER/ILLNESS N NEUROPSYCHOLOGICAL N CARDIAC ARRHYTHMIA N CANCER: SPECIFY N PNEUMONIA N ATRIAL FIBRILLATION N Gall Stones N PULMONARY EMBOLISM N AUTOIMMUNE DISEASE N Gynecological History Statement/Question Response Flow Moderate Date of LMP 01/14/2024 Dislike of Light during Menstrual Headac he N Do your menstrual headaches get severe N Duration of Flow (days) 6 Most Recent Mammogram Age at Menarche 16 Date of Last Colonoscopy Frequency of Cycle (Q days) 28 Most Recent Bone Density Do you get headaches during your period N Menses Monthly Y Date of Last Pap Smear Obstetrics History GPAL:G 0 P 0 0 0 0 Immunizations Vaccine Type Date Status Note Provider Nam lenka and Address Organization Details Recorded Time Influenza, split virus, quadrivalent, PF 3 completed Jennifer Lynne RN [facility], [facility] 05/20/2023 09:12:27 Influenza, split virus, trivalent, preservative 4 completed Not Available [facility] 10/29/2022 08:12:07 Influenza, split virus, quadrivalent, PF 9 completed Not Available [facility] 10/29/2022 08:12:07 Influenza, split virus, quadrivalent, PF 7 completed Not Available [facility] 10/29/2022 08:12:07 Tdap 5 completed Not Available [facility] 10/29/2022 08:12:07 Influenza, split virus, quadrivalent, PF 1 completed Not Available [facility] 10/29/2022 08:12:07 Influenza, split virus, quadrivalent, PF 0 completed Not Available [facility] 10/29/2022 08:12:07 Influenza, split virus, trivalent, PF 3 completed Not Available [facility] 10/29/2022 08:12:07 Past Encounters Encounter ID Performer Location Encounter Start Date Encounter Closed Date Diagnosis/Indication Diagnosis SNOMED-CT Code Diagnosis ICD10 Code Diagnosis Note [id number] [facility] [address] [place] [id number] 1 07/16/2021 00:00:00 07/16/2021 16:28:30 [id number] [facility] [address] [place] [id number] 1 07/30/2021 00:00:00 07/30/2021 16:24:15 [id number] Jennifer Mcconnell NP [address] [id number] 1 01/07/2023 16:15:24 01/07/2023 16:59:59 Adult health examination 659364060 Z00.00 Encouraged well balanced meals, active lifestyle, and routine vision and dental appts. Anemia screening 4970355 07 Z13.0 Diabetes m ellitus screening 244208008 Z13.1 Thyroid di sorder screening 840689304 Z13.29 Hyperlipid emia screening 795511345 Z13.220 Asthma 641833043 J45.90 9 symbicort bid, montelukas t 10 mg po daily. Sent to [facility]. [id number] Jennifer Mcconnell NP [address] [id number] 05/20/2023 07:56:21 05/20/2023 08:37:20 Asthma 660751402 J45.909 Symbicort bid, montelukas t 10 mg po daily. Sent to [facility].Re ferred to pulm per pt request. Seasonal a llergic rhinitis 480966070 J30.2 Cetirizine 10 mg po daily.Flon ase. Administra tion of influenza vaccine 31562151 Z23 Flu shot. [id number] Jennifer Mcconnell NP [address] [id number] 09/03/2023 08:55:29 09/03/2023 09:40:43 Anxiety 17567375 F41.9 Sertraline 25 mg po daily for 2 weeks, then 50 mg po daily. Allergic rhinitis 028067 04 J30.9 Montelukas t 10 mg po daily. [facility] per pt request. [id number] NANCY Bolanos [address] [id number] 12/01/2023 09:23:20 12/01/2023 09:43:42 Anxiety 18997509 F41.9 Continue follow up every 6 months, let us know if moods change Asthma 569296358 J45.90 9 Continue daily antihistam ine as neededCont inue follow up with pulmonolog y [id number] NANCY Bolanos [facility] [address] [id number] 01/20/2024 16:03:02 01/20/2024 16:40:09 Asthma 442747615 J45.909 Continue daily antihistam ine as neededCont inue follow up with pulmonolog y Acute otitis externa 302 35493 H60.509 ABX ear drop offered, pt declined. She would like to wait this out. She will call in if she changed her mind. Health Concerns Section Related Observation LastModified by Organization Detai ls LastModified Time None Recorded Concern Status LastModified by Organization Details LastModified Time None Recorded Advance Directives Directive N: Payers Encounter Date Sequence Insurance Name Policy Number Policy Grayson Covered Member ID Grayson Member ID Guarantor Name 01/07/2023 1 [place] [id number] 1 Porsche L Andino [id number] Porsche L Andino 05/20/2023 1 [place] [id number] 1 Porsche L Andino [id number] Porsche L Andino 09/03/2023 1 [place] [id number] 1 Porsche L Andino [id number] Porsche L Andino 12/01/2023 1 [place] [id number] 1 Porsche L Andino [id number] Porsche L Andino 01/20/2024 1 [place] [id number] 1 Porsche L Andino [id number] Porsche L Andino Notes Date Note Type Note Provider Name and Address Organization Details Recorded Time 01/07/2023 text/html Here for pamela calles appt. Last seen in 07/2021. Has been good, changed jobs and changed insurance.Occasional back pain. Occasional anxiety with stomach issues. Diet mods do help. Jennifer Mcconnell, SAHARA [address], [facility] [address], [place], [address], [employer] 01/07/2023 16:55:34 05/20/2023 text/html Here for 6 mo fu allergies and asthma. Allergies- feeling like this year has been the worst in several years. Hasn't been able to keep voice- was hoarse for months. Cetirizine did not work for her. Asthma- flared with allergies. Has needed to use inhaler more. Had a nebulizer as a kid, but not for several years. Has had a few days she felt like a treatment would have been beneficial, but had no access. Jennifer Mcconnell NP [address], [address], [place], [address], [employer] 05/20/2023 08:33:25 09/03/2023 text/html Here for follow up on breathing. Did bronchial PFT and no asthma diagnosed. Dropped 17%, not > 20% which is asthmatic. Weaned off symbicort. Stay on montelukast and albuterol, and flonase. Issues were over the summer, which testing was in fall. Pt concerned missing Irregular heartbeat- saw facilities technician in the past. Nothing new. Anxiety- flared up over the holidays. Buying a house to close on next week. Getting tearful. Weight for the past 3 weeks has been battling to stay above 110 lbs. Had some family pressure over the holidays and ready to get help with it. Does have family and friends., but may benefit from therapist and medication. Pt states this is the worse it's been and sees herself shutting down and isolating. No si/hi. Feeling overwhelmed. disappointed in family actions and their choices. Jennifer Mcconnell NP [address], [facility] [address], [place], [address], [employer] 09/03/2023 09:29:37 12/01/2023 text/html Porsche Andino is a 33 year female patient here to establish care. She was previously under the care of Jennifer Mcconnell DNP who is no longer with this clinic. Her past medical history is pertinent for depression. She feels her depression symptoms are well controlled today. Her PHQ2/9 score today is 0. She is currently taking sertraline 50 mg PO daily. She started this in July. She has seasonal allergies. She is currently taking montelukast 10 mg PO daily, Flonase, and albuterol 2 puffs q4 hrs PRN. She requires the albuterol in the heavy allergen seasons.She saw pulmonology and PFTs and asthma was ruled out, they recommended that she continue her allergy regimen. Flu Shot: OVID vaccines: 12/2020, 12/2020, 01/2021Tdap: 01/2015WWE: 2021, recommended in 2024Vision exams: recommendedDental screenings: due, recommended NANCY Bolanos [address], [address], [place], [address], [employer] 12/01/2023 09:43:07 01/20/2024 text/html Porsche Andino is a 33 year old female patient here today for left ear pain. This began approx 1.5 weeks ago. She had sporadic shooting pains with generalized pressure. She has not been taking her loratidine over this time. She also had a hair cut two weeks ago and admits that she had excess water and hair in her ear after this NANCY Bolanos [address], [address], [place], [address], [employer] [facility] [employer] 01/20/2024 16:37:08 OBGyn Episode No OBEpisode recorded.
--- OUTSIDE RECORDS SUMMARY | 2024-12-22 08:10 | XMS_ITS | Clinical Summary ---
Author Organization [facility] Address [address] [facility] [place] [address] Care Team Providers Care Chief Contract Officer Name Role Phone Justin Strauss MD Primary Care Provider [phone] Source Comments [facility],non-owned Affiliates and Associated Physician Practices is amultiple site organization consisting of ambulatory clinics and hospital sitesin [place], [place], [place] and [place]. This disclosure is being madepursuant to the Care Everywhere program and may not contain all information available regarding this patient. Last updated 18.[facility] Allergies Active Allergy Reactions Criticality Noted Date Comments Azithromycin Nausea and/or Vomiting 02/06/2010 Medications * Be aware that medications may not be up to date on this document. Alwaysverify current medications with the patient. levalbuterol (XOPENEX) 45 MCG/ACT inhaler Inhale 2 Puffs by mouth as needed Active montelukast (SINGULAIR) 10 MG tablet Take 10 mg by mouth at bedtime. Active albuterol (PROVENTIL; VENTOLIN) 90 MCG/ACT inhaler Inhale 2 Puffs by mouth every 6 hours as needed for Shortness of Breath, Wheezing and Cough. Active mometasone (ASMANEX) 220 MCG/INH inhaler Inhale 1 Puff by mouth at bedtime. 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 Gender Identity Not on file Sexual Orientation Not on file Last Filed Vital Signs Vital Sign Reading Time Taken Comments Blood Pressure 114/58 02/06/2010 2:44 PM CDT Pulse 100 02/06/2010 2:44 PM CDT Temperature - - Respiratory Rate - - Oxygen Saturation - - Inhaled Oxygen Concentration - - Weight 59 kg (130 lb 1.1 oz) 02/06/2010 2:05 PM CDT Height 165.5 cm (5' 5.16 ) 02/06/2010 2:05 PM CD T Body Mass Index 21.54 02/06/2010 2:05 PM CDT Plan of Treatment Health Maintenance Due Date Last Done Comments HIV SCREENING 12/01/2007 HEPATITIS C SCREENING 11/26/2010 DTAP/TDAP/TD VACCINES (1 - Tdap) 12/01/2011 HEPATITIS B VACCINE (1 of 3 - 19+ 3-dose series) 12/01/2011 COVID-19 VACCINE (1 - 2023-2 5 season) 2024 DEPRESSION SCREENING 08/31/2024 INFLUENZA VACCINE (Season Ended) 2025 ZOSTER VACCINE (1 of 2) 2042 HIB VACCINE Aged Out No longer eligi ble based on patient's age to complete this topic HPV VACCINE Aged Out No longer eligi ble based on patient's age to complete this topic MENINGOCOCCAL (Group B) VACC INE SHARED DECISION-MAKING Aged Out No longer eligibl e based on patient's age to complete this topic MENINGOCOCCAL GROUPS A/C/Y/W VACCINE Aged Out No longer eligible b ased on patient's age to complete this topic PNEUMOCOCCAL VACCINE Aged Out No long er eligible based on patient's age to complete this topic Care Teams Chief Contract Officer Relationship Specialty Start Date End Date Justin Strauss MD [address] [place] [address] PCP - General 02/06/10
[2024-12-22 08:11] VITALS: BP 117/67; PULSE 93; RESP 16; O2SAT 98
--- NOTE | 2024-12-22 08:16 | ED_ITS ---
HPI - Abdominal Pain General Chief Complaint: Abdominal Pain Stated Complaint: R flank pain Time Seen by Provider: 12/22/24 08:05 Source: patient Mode of arrival: ambulatory Limitations: no limitations History of Present Illness HPI narrative: 34 years old white female with history of anxiety and depression woke up this morning with pain at the right flank area right abdomen, squeezing, constant, no aggravating or relieving factors associated with vomiting once prior to arrival. She denies any fever or chills diarrhea or constipation urinary symptoms or vaginal bleeding or discharge. She denies history of abdominal surgery. Related Data Allergies Allergy/AdvReac Type Severity Reaction Status Date / Time azithromycin AdvReac Intermediate Vomiting Verified 12/22/24 08:04 Review of Systems 2 Review of Systems: All systems reviewed & are unremarkable except as noted in HPI and below Exam 2 Narrative: General appearance: Well-developed, well-nourished Skin: Normal color Head: Normocephalic, nontraumatic Eyes: Clear conjunctiva ENT: Oropharynx normal, ears normal, nose normal Neck: Supple, nontender Chest and respiratory: Airway patent, no respiratory distress, no accessory muscle use Heart: Regular rate/rhythm Abdomen: Soft, mild tenderness right lower quadrant, no guarding or rebound, no organomegaly, quiet bowel sounds Vascular: Normal peripheral pulses, normal capillary refill. Musculoskeletal: Normal range of motion, nontender back Neurologic: Alert and oriented ?3, FURNACE COMBINATION ANALYST is normal as tested, no gross motor deficit Course Vital Signs Vital signs: Vital Signs Pulse Rate 93 12/22/24 08:11 Respiratory Rate 16 12/22/24 08:11 Blood Pressure 117/67 12/22/24 08:11 Pulse Oximetry 98 12/22/24 08:11 Pulse Rate 93 12/22/24 08:11 Respiratory Rate 16 12/22/24 08:11 Blood Pressure 117/67 12/22/24 08:11 Pulse Oximetry 98 12/22/24 08:11 MDM - Abdominal Pain MDM Narrative Medical decision making narrative: Patient presents with right abdominal pain Vital signs are stable Physical examination showing mild tenderness right lower quadrant Differential diagnosis include appendicitis, urinary tract infection, kidney stone, constipation, colitis, diverticulitis, ovarian cyst. Blood workup today includes CBC, CMP, lipase showed insignificant abnormalities Urinalysis showed evidence of urinary tract infection CT abdomen and pelvis with IV contrast showed SMALL RIGHT OVARIAN CYST, DENSE AREAS SEEN IN THE ENDOMETRIAL CAVITY WHICH MAY BE FIBROIDS OR MASSES CLINICAL CORRELATION AND FURTHER EVALUATION ADVISED DIAGNOSIS URINARY TRACT INFECTION DISCHARGED ON CIPRO, TYLENOL, IBUPROFEN NEEDED. THE PT WAS DISCHARGED TO HOME.THE PT,S CONDITION UPON DISCHARGE WAS FAIR,EDUCATION WAS PROVIDED TO THE PT IN REFERENCE TO THE FINAL IMPRESSION,DISCHARGE STUDY RESULTS,TREATMENT,PROGNOSIS AND NEED FOR FOLLOW UP . Differential Diagnosis Differential diagnosis: Likely other ( ABOVE) Lab Data 12/22/24 08:34 12/22/24 08:34 Labs: Lab Results 12/22/24 12/22/24 12/22/24 Range/Units 08:34 08:46 08:48 WBC 6.2 (4.5-10.0) K/mm3 RBC 4.03 L (4.2-5.4) M/mm3 Hgb 12.7 (12.0-15.0) g/dL Hct 39.3 (37.0-47.0) % MCV 97.5 (80-100) fl MCH 31.5 (26-34) pg MCHC 32.3 (32-36) g/dl RDW 12.4 (11.5-14.5) % Plt Count 281 (150-375) k/mm3 MPV 9.7 (7.4-10.4) fl Immature Gran % (Auto) 0.3 (0-0.5) % Neut % (Auto) 56.7 (45.5-73.1) % Lymph % (Auto) 33.3 (18.3-44.2) % Charlton % (Auto) 7.9 (2.6-8.5) % Eos % (Auto) 1.3 (0-4.4) % Baso % (Auto) 0.5 (0.2-1.2) % Lymph # (Auto) 2.06 (0.9-3.2) K/mm3 Charlton # (Auto) 0.5 (0.1-0.6) K/mm3 Eos # (Auto) 0.1 (0-0.3) K/mm3 Baso # (Auto) 0.0 (0.0-0.1) K/mm3 Abs Immat Gran (auto) 0.02 (0.00-0.031) K/mm3 Absolute Neuts (auto) 3.5 (1.3-6.7) K/mm3 Absolute Nucleated RBC 0.000 (0.0-0.012) K/mm3 Nucleated RBC % 0.0 (0.0-0.2) % Sodium 139 (137-145) mmol/L Potassium 4.5 (3.4-5.0) mmol/L Chloride 104 (98-107) mmol/L Carbon Dioxide 26 (22-30) mmol/L Anion Gap 9 (4-12) mmol/L BUN 13 (7-17) mg/dL Creatinine 0.63 L (0.7-1.0) mg/dL Estim Creat Clear Calc 94 ml/min Estimated GFR > 60 (59 - ) Glucose 93 (65-110) mg/dL Calcium 9.0 (8.4-10.2) mg/dL Total Bilirubin 0.4 (0.2-1.3) mg/dL AST 17 (14-36) U/L ALT 11 (6-35) U/L Alkaline Phosphatase 39 (38-126) U/L Total Protein 7.0 (6.3-8.2) g/dL Albumin 4.5 (3.5-5.1) g/dL Lipase 164 (23-300) U/L Urine Color Yellow (Yellow) Urine Appearance Clear (Clear) Urine pH 7.5 (5.0-9.0) Ur Specific Luna 1.023 (1.001-1.035) Urine Protein Negative (Negative) mg/dL Urine Glucose (UA) Negative (Negative) mg/dL Urine Ketones Negative (Negative) mg/dL Ur Blood (Man) 2+ H (Negative) Urine Nitrate Negative (Negative) Urine Bilirubin Negative (Negative) Urine Urobilinogen 0.2 (<2.0) mg/dL Leukocyte Esterase Rfl 2+ H (Negative) MANJEET/UL Urine RBC 51-100 H (0-2) /hpf Urine WBC 6-10 H (0-3) /hpf Ur Squamous Epith Cells Few (Few) /hpf Urine Bacteria Rare /hpf Urine Casts 0-2 POC Urine HCG, Qual Negative (Negative) Imaging Data Radiologist's impression: ITS Impressions Abdomen/Pelvis CT 12/22/24 09:29 IMPRESSION: 1. No evidence of appendicitis, diverticulitis or intestinal obstruction. 2. Dense areas seen in the endometrial cavity which may be fibroids or masses. products cannot be excluded. Clinical correlation and further evaluation advised. 3. Small right ovarian cyst. 4. Minimal free fluid in the pelvis. Critical Care Time Critical Care Time Critical Care Time: No Discharge Plan Discharge Clinical Impression: Urinary tract infection Patient Disposition: Home Condition: Stable Instructions: Antibiotic Form, Urinary Tract Infection in Women (DC) Additional Instructions: RETURN IF SYMPTOMS ARE WORSENING , CALL YOUR FAMILY PHYSICIAN FOR APPOINTMENT, TAKE TYLENOL NEEDED FOR ACHES AND PAIN, CONTINUE HOME MEDICATIONS. CT SCAN OF THE ABDOMEN AND PELVIS TODAY SHOWED POSSIBLE UTERINE FIBROIDS OR MASSES. FOLLOW-UP WITH OBGYN WITHIN 1 WEEK FOR POSSIBLE PELVIC ULTRASOUND IS RECOMMENDED. TAKE TYLENOL, IBUPROFEN NEEDED Patient Language: Croatian Prescriptions: New ciprofloxacin HCl [Cipro] 500 mg tablet 500 mg PO Q12H Qty: 14 0RF Follow-up/Referrals: PHYSICIAN NOT ON STAFF,NONSTAFF [Non-Staff] - Pastor Mckeon MD [Physician] - 12/26/24
[2024-12-22] MEDS: SODIUM CHLORIDE 0.9% IV 1,000 ML 999 ML IV CONT (08:30)
[2024-12-22 08:44] LABS: Basophils Percent Auto 0.5 % (0.2-1.2); Eosinophils Absolute Auto 0.1 K/mm3 (0-0.3); Eosinophils Percent Auto 1.3 % (0-4.4); Hematocrit 39.3 % (37.0-47.0); Hemoglobin 12.7 g/dL (12.0-15.0); Immature Granulocyte Absolute 0.02 K/mm3 (0.00-0.031); Immature Granulocyte Percent A 0.3 % (0-0.5); Lymphocytes Absolute Auto 2.06 K/mm3 (0.9-3.2); Lymphocytes Percent Auto 33.3 % (18.3-44.2); Mean Corpuscular HGB Conc 32.3 g/dl (32-36); Mean Corpuscular Hemoglobin 31.5 pg (26-34); Mean Corpuscular Volume 97.5 fl (80-100); Mean Platelet Volume 9.7 fl (7.4-10.4); Monocytes Absolute Auto 0.5 K/mm3 (0.1-0.6); Monocytes Percent Auto 7.9 % (2.6-8.5); Neutrophils Absolute Auto 3.5 K/mm3 (1.3-6.7); Neutrophils Percent Auto 56.7 % (45.5-73.1); Platelet Count Result 281 k/mm3 (150-375); Red Blood Count 4.03 M/mm3 (4.2-5.4); Red Cell Distribution Width 12.4 % (11.5-14.5); White Blood Count 6.2 K/mm3 (4.5-10.0)
--- OUTSIDE RECORDS SUMMARY | 2024-12-22 08:48 | XMS_ITS | Referral Summary ---
Author Organization [facility] Address [address] [place] [address] Care Team Providers Care Project Planner Name Role Phone Jennifer Mcconnell LONG WALL MINING MACHINE HELPER Primary Care Provider + Allergies Active Allergy [...] Plan of Treatment Not on file Insurance [employer] ACCESS CHOICE [employer] Care Teams Project Planner Relationship Specialty Start Date End Date Jennifer Mcconnell NP PCP - General Nurse Practitioner 05/22/23
--- OUTSIDE RECORDS SUMMARY | 2024-12-22 08:48 | XMS_ITS | Clinical Summary ---
Author Organization [facility] Address [address] [facility] [place] [address] Care Team Providers Care Founder And Chief Technical Officer Name Role Phone Justin Strauss MD Primary Care Provider [phone] Source Comments [facility],non-owned Affiliates and Associated Physician Practices is amultiple site organization consisting of ambulatory clinics and hospital sitesin [place], [place], [place] and [place]. This disclosure is being madepursuant to the Care Everywhere program and may not contain all information available regarding this patient. 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
--- OUTSIDE RECORDS SUMMARY | 2024-12-22 08:48 | XMS_ITS | Clinical Summary ---
Author Organization [facility] Address [address] [place] [address] Care Team Providers Care Health Care Marketing Manager Name Role Phone Jennifer Mcconnell SAFETY PERSON Primary Care Provider + Allergies Active Allergy [...] ACCESS CHOICE ANTHEM ACCESS CHOICE Care Teams Health Care Marketing Manager Relationship Specialty Start Date End Date Jennifer Mcconnell NP PCP - General Nurse Practitioner 05/22/23
--- OUTSIDE RECORDS SUMMARY | 2024-12-22 08:48 | XMS_ITS | Clinical Summary ---
Author Organization [facility] Address [address] [place] [id number] Care Team Providers Care Gas Pumping Station Helper Name Role Phone Unavailable Primary Care Provider [...]
[2024-12-22 08:49] LABS: BEDSIDEPREGUCG Negative (Negative)
[2024-12-22 08:51] LABS: Alanine Aminotransferase 11 U/L (6-35); Albumin Level 4.5 g/dL (3.5-5.1); Alkaline Phosphatase 39 U/L (38-126); Anion Gap 9 mmol/L (4-12); Aspartate Amino Transferase 17 U/L (14-36); Bilirubin,Total 0.4 mg/dL (0.2-1.3); Blood Urea Nitrogen 13 mg/dL (7-17); Carbon Dioxide 26 mmol/L (22-30); Chloride 104 mmol/L (98-107); Estimated CRCL calculation 94 ml/min; Estimated Glomerular Filt Rate > 60; Glucose 93 mg/dL (65-110); Lipase 164 U/L (23-300); Potassium 4.5 mmol/L (3.4-5.0); Sodium 139 mmol/L (137-145)
[2024-12-22 08:58] LABS: Add Urine Microscopic? YES; Appearance Urine Clear (Clear); Bacteria Urine Rare /hpf; Bilirubin Urine Negative (Negative); Blood Urine 2+ (Negative); Color Urine Yellow (Yellow); Glucose Urine UA Negative (Negative); Ketones Urine Negative (Negative); Leukocyte Esterase Ur 2+ LEU/UL (Negative); Nitrate Urine Negative (Negative); Non Pathogenic Casts 0-2; Protein Urine Negative (Negative); RBC Urine 51-100 /hpf (0-2); Specific Grav Ur 1.023 (1.001-1.035); Squamous Epithelial Cell Urine Few /hpf (Few); Urobilinogen Urine 0.2 mg/dL (<2.0); pH Urine 7.5 (5.0-9.0)
== END 2024-12-22 10:30 | disposition home or self-care (01) ==
PROVIDERS: Emergency Provider Emergency Medicine
DX: N39.0 Urinary tract infection, site not specified (principal); N83.201 Unspecified ovarian cyst, right side
CPT/HCPCS: 36415; 74177; 80053; 81001; 81025; 83690; 85025; 87086; 96360; 99284; J7030; Q9967